=== PATIENT | male | born 1940 | race Caucasian/White ===

== ENCOUNTER 2020-05-05 02:10 | Emergency (ER) | payer MEDICARE ==
[~2020-05-05] VITALS: Ht 170.2 cm; Wt 79.8 kg
[~2020-05-05 02:10] MED LIST: ADULT LOW DOSE81 MG; ATORVASTATIN CA40 MG; CARDIZEM CD240 MG; ELIQUIS5 MG; FINASTERIDE5 MG; FISH OIL 1,001000 M2; FLOVENT HFA 1110 MCG; KETOROLAC 0.5% E5 ML; MULTIVITAMINS; NEXIUM; OCUFLOX10 ML; PRED FORTE 1% EY5 M1; PRILOSEC20 MG; REFRESH OPTIVE10 ML; SIMVASTATIN40 MG; TAMSULOSIN HCL0.4 MG; ZETIA10 MG
[2020-05-05] MEDS ORDERED: WARFARIN SODIUM1 MG PO (02:18)
[2020-05-05 04:21] VITALS: BP 123/67
== END 2020-05-05 04:21 | disposition home or self-care (01) ==
LOC: M.ERS 02:10
DX: R04.0 Epistaxis (principal); E78.00 Pure hypercholesterolemia, unspecified; K21.9 Gastro-esophageal reflux disease without esophagitis

== ENCOUNTER 2020-06-27 20:45 | Emergency (ER) | payer MEDICARE ==
[~2020-06-27] VITALS: Ht 185.4 cm; Wt 74.9 kg
[~2020-06-27 20:45] MED LIST changes: +WARFARIN SODIUM1 MG PO
[2020-06-27] MEDS ORDERED: FUROSEMIDE 40 M40 MG PO (21:04)
[2020-06-27] MEDS ORDERED: B12 ACTIVE1000 MCG PO (21:04)
[2020-06-27 21:54] LABS: URINE BILIRUBIN NEGATIVE (Negative); URINE BLOOD 1+ (Negative); URINE CLARITY CLEAR; URINE COLOR ORANGE; URINE GLUCOSE-RANDOM TRACE (Negative); URINE KETONES NEGATIVE (Negative); URINE LEUKOCYTES-REFLEX NEGATIVE (Negative); URINE PROTEIN 1+ (Negative); URINE SPECIFIC GRAVITY 1.015 (1.005-1.030)
[2020-06-27 21:58] LABS: URINE NITRITE-REFLEX POSITIVE (Negative)
[2020-06-27 22:02] LABS: BACTERIA-REFLEX 1-9 Few /HPF (None Seen); HYALINE CASTS 0-3 Few /LPF (None Seen); MUCUS 0-3 Light strn/LPF (None Seen); SQUAMOUS 0-3 Few /LPF (0-3); URINE RBC 3-10 Few /HPF (0-2); URINE WBC-REFLEX 0-5 Rare /HPF (0-5)
[2020-06-27 22:03] LABS: CRYSTALS None Seen /LPF (None Seen)
[2020-06-27 22:50] VITALS: BP 101/54
== END 2020-06-27 22:51 | disposition home or self-care (01) ==
LOC: M.ERS 20:45
PROVIDERS: Emergency Medicine
DX: T83.098A Other mechanical complication of other urinary catheter, initial encounter (principal); N40.0 Benign prostatic hyperplasia without lower urinary tract symptoms; E78.00 Pure hypercholesterolemia, unspecified; I48.91 Unspecified atrial fibrillation; K21.9 Gastro-esophageal reflux disease without esophagitis; Z79.01 Long term (current) use of anticoagulants; Z79.899 Other long term (current) drug therapy; Y92.89 Other specified places as the place of occurrence of the external cause